=== PATIENT | female | born 1955 | race African-American/Black ===

== ENCOUNTER 2018-10-02 19:59 | Emergency (ER) | payer BC, OTHER ==
[~2018-10-02] VITALS: Ht 162.6 cm; Wt 65.8 kg
[~2018-10-02 19:59] MED LIST: ACETAMINOPHEN650 M5 PO; ADULT LOW DOSE81 MG PO; ASPIRIN325 OR; BRILINTA90 MG PO; CHANTIX1 MG PO; CIPROFLOXACIN500 M1 PO; DIAZEPAM 5 MG5 MG PO; FLEXERIL PO; IBUPROFEN 600600 M1 PO; LISINOPRIL-HCT1 EAC1 PO; LISINOPRIL10 MG; LORTAB 5 MG/5001 TA1 PO; MIRALAX255 GM PO; NICOTINE TRANSD21 M1 TD; NITROGLYCERIN0.4 MG SUBLING; NITROSTAT0.4 MG SL; NOHOMEMEDICATIONS; NORCO 5-325 TA1 EACH PO; OMEPRAZOLE40 MG PO; OXYBUTYNIN 5 MG5 M1 PO; PANTOPRAZOLE SO40 MG PO; PRILOSEC 20 MG20 MG PO; PRILOSEC40 MG PO; SIMVASTATIN40 MG PO; SKELAXIN 800 M800 M1 PO; SUCRALFATE 1 GM PO; ULTRAM 50MG TAB50 MG PO; ZOCOR 10 MG TAB10 MG PO; ZOCOR40 MG PO; [UNRECOGNIZED DRUG - REMARK]; [UNRECOGNIZED DRUG - REMARK]
[2018-10-02] MEDS ORDERED: PREDNISONE 20 M20 M1 PO (20:56)
[2018-10-02] MEDS ORDERED: PEPCID20 MG PO (20:56)
[2018-10-02 21:41] VITALS: BP 135/76
== END 2018-10-02 21:42 | disposition home or self-care (01) ==
LOC: ER 19:59
DX: T78.49XA Other allergy, initial encounter (principal); I10 Essential (primary) hypertension; K21.9 Gastro-esophageal reflux disease without esophagitis; K58.9 Irritable bowel syndrome, unspecified; E78.5 Hyperlipidemia, unspecified; M19.90 Unspecified osteoarthritis, unspecified site; I25.10 Atherosclerotic heart disease of native coronary artery without angina pectoris; E06.3 Autoimmune thyroiditis; Z90.49 Acquired absence of other specified parts of digestive tract; Z88.8 Allergy status to other drugs, medicaments and biological substances

== ENCOUNTER 2021-02-01 13:55 | Observation (INO) | payer OTHER ==
[~2021-02-01] VITALS: Ht 160 cm; Wt 78.0 kg
[~2021-02-01 13:55] MED LIST changes: +PEPCID20 MG PO; +PREDNISONE 20 M20 M1 PO
[2021-02-01 14:14] VITALS: BP 143/74
[2021-02-01 14:51] LABS: ABSOLUTE NEUTROPHILS 8.3 thou/uL (1.4-8.2); BASOPHILS 0.6 % (0.0-2.0); EOSINOPHILS 1.4 % (0.0-3.0); HEMATOCRIT 40.6 % (37.0-47.0); HEMOGLOBIN 12.8 gm/dL (12.0-15.0); LYMPHOCYTES 21.9 % (24.0-44.0); MCH 24.3 pg (26.0-34.0); MCHC 31.4 g/dL (28.0-37.0); MCV 77.3 fL (80.0-100.0); MONOCYTES 7.3 % (1.0-8.0); PLATELET COUNT 259 thou/uL (150-400); POLYS 68.8 % (36.0-66.0); RBC 5.25 mil/uL (4.20-5.00)
[2021-02-01 15:07] LABS: ANION GAP 10 mmol/L (7-16); BUN 10 mg/dL (7-18); CALCIUM 9.2 mg/dL (8.5-10.1); CHLORIDE 106 mmol/L (98-107); CO2 27 mmol/L (21-32); GLUCOSE 97 mg/dL (74-106); POTASSIUM 4.4 mmol/L (3.5-5.1); SODIUM 143 mmol/L (136-145)
[2021-02-01 15:17] LABS: SGOT 14 U/L (15-37); SGPT 20 U/L (14-59); TOTAL BILIRUBIN 0.4 mg/dL (0.2-1.0); TROPONIN-I <0.06 ng/mL (<0.06)
[2021-02-01] MEDS ORDERED: CARVEDILOL3.125 MG PO (15:18)
[2021-02-01] MEDS ORDERED: VESICARE 5 MG TA5 M1 PO (15:18)
[2021-02-01] MEDS ORDERED: LYRICA 75 MG CA75 MG PO (15:19)
[2021-02-01] MEDS ORDERED: ADULT LOW DOSE81 MG PO (15:19)
--- NOTE | 2021-02-01 15:20 | EKG ---
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
[2021-02-01 15:58] VITALS: BP 124/71
[2021-02-01 16:31] VITALS: BP 123/84
[2021-02-01 16:51] LABS: CHOLESTEROL 261 mg/dL (<200); HDL CHOLESTEROL 57 mg/dL (>40); LDL CHOLESTEROL 186 mg/dL (<100); TC:HDL 4.6 Ratio (Not establshd); TRIGLYCERIDE 92 mg/dL (<150); VLDL 18 mg/dL (<40)
[2021-02-01 16:55] LABS: SERUM ASSESSMENT Clear
[2021-02-01 17:23] VITALS: BP 130/77
--- NOTE | 2021-02-01 18:28 | NUR ---
PT ADMITED FROM ER. ADMISSION HX AND ASSESSMENT COMPLETED. VSS. SR ON TELE. NEW ORDERS NOTED. NPO AFTER MIDNIGHT FOR CARDIAC CATH IN AM. NO CONCERNS AT THIS TIME.
[2021-02-01 20:15] VITALS: BP 138/85
[2021-02-02 00:30] VITALS: BP 127/73
[2021-02-02 04:45] VITALS: BP 106/71
--- NOTE | 2021-02-02 05:41 | NUR ---
SLEPT MOST OF SHIFT. UP AD MARTINE TO BATHROOM WITH STEADY GAIT. NO FURTHER COMPLAINTS OF PAIN OR ITCHING. WORKING ON GOALS AND PLAN OF CARE FOR NOC. 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 CONTINUE TO ASSES CLOSELY.
--- NOTE | 2021-02-02 07:41 | EKG ---
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
[2021-02-02] MEDS ORDERED: LIPITOR40 MG PO (08:11)
[2021-02-02 09:02] VITALS: BP 106/71
--- NOTE | 2021-02-02 10:17 | CATHLAB ---
[facility] [place] [address] INVASIVE PROCEDURE REPORT Name: BARB BARAHONA Room #: 200-I ADM [facility] M.R.#: [id number] Admission: 02/01/21 Attend Phys: Naresh Rico MD Discharge: Date of : 57 Report #: [id number] THIS REPORT FOR: cc: Mireya Sterling MD, Sequita MD Lundgren, Craig H. MD [facility] ~ APPROVED REPORT Study performed: 02/02/2021 07:01:40 Patient Details Patient Status: In-Patient Room #: 200 The patient is a 65 year-old female Event Personnel Jorge Marlow Certified Master Safecracker, Maycol Mejia RN, Jess Weathers RTR, MOLD REPAIR TECHNICIAN Monitor, Rachel Meeks Screrinn Procedures Performed Art Access - R femoral artery* Left Heart Cath w/or w/o Coronaries [id number] [facility] 11856 Initial Mod Sed Same Phys/QHP Gr5y 711161 20077 Mod Sed Same Phys/QHP Ea 736367 Hemostasis w/ Mynx Indication Chest pain Procedure Narrative The patient was brought electively to the Cardiac Catheterization Laboratory and was prepped and draped in a sterile manner. The Right Groin^ was infiltrated with 1% Lidocaine subcutaneous anesthesia. A PINNACLE 6FR Sheath #[id number] sheath was inserted into the RFA^. Coronary angiography was performed using coronary diagnostic catheters. The right coronary system was accessed and visualized with a JR4 catheter. The left coronary system was accessed and visualized with a JL4 catheter. The left ventricle was accessed and visualized with a ANGLED PIGTAIL catheter. Left ventricular/Aortic Valve gradient assessed via catheter pullback. Left ventriculogram was performed in 30 degree projection. Closure device was deployed with a 6 Fr MYNXGRIP 6/7F #[id number]. The patient tolerated the procedure well and there were no complications associated with the procedure. There was no hematoma. Intraoperative Conscious Sedation Sedation start time: 07:43 Case end Time: [facility] [address] [place] [address] INVASIVE PROCEDURE REPORT Name: BARB BARAHONA Room #: 200-I ADM IN [facility].#: [id number] Admission: 02/01/21 Attend Phys: Cedric Bueno Discharge: Date of : 57 Report #: [id number] 08:13 Fentanyl 100 mcg Versed 2 mg Fluoro Time: 2.10 minutes Dose: DAP 4996.60 cGycm2 682 mGy Contrast Type and Amount: Omnipaque 105 ml Coronary Angiography The patient's coronary anatomy is right dominant. Diagnostic Cath Left Main Normal left main normal left main LAD Widely patent proximal 2.5 mm Xience stent. LAD appeared angiographically normal throughout the remainder of its course Diagonal 1 Large, single diagonal branch, angiographically normal Circumflex Mild ostial plaquing of the circumflex (20-30%) OM1 Large single bifurcating marginal branch, angiographically normal Right Coronary Normal dominant right coronary R PDA Normal posterior descending RPLV Normal posterior lateral branch Left Ventriculography The left ventricle is normal in size with normal contractility. The left ventricular ejection fraction is estimated to be 60-65%. Left ventricular wall motion abnormalities are not present. There is no mitral insufficiency. Hemodynamics The aortic pressure is 154/64 mmHg with a mean of 104 mmHg. The left ventricular pressure is 181/9 mmHg with a mean of mmHg. The left ventricular end diastolic pressure is 29 mmHg. Pullback from the left ventricle to the aorta revealed no gradient across the aortic valve. Conclusion 1. Normal global and regional left ventricular systolic function. EF 65% 2. Normal left main 3. Widely patent 2.5 mm Xience proximal LAD stent. The LAD was otherwise normal. 4. Mild ostial circumflex plaquing otherwise normal circumflex 5. Normal dominant right coronary. [facility] [address] [place] [address] INVASIVE PROCEDURE REPORT Name: BARB BARAHONA Room #: 200-I [facility] IN [facility]#: [id number] Admission: 02/01/21 Attend Phys: Cedric Bueno Discharge: Date of : 57 Report #: [id number] Recommendations Aggressive Medical Therapy <ELECTRONICALLY SIGNED> By: Jorge Marlow MD, [facility] 02/02/21 1016 1016 1016 Jorge Marlow MD, FACC /INF
[2021-02-02] MEDS ORDERED: AMITRIPTYLINE H10 M1 PO (10:49)
[2021-02-02] MEDS ORDERED: XANAX 0.5 MG0.5 M1 PO (10:49)
--- NOTE | 2021-02-02 11:55 | NUR ---
ASSUMED CARE OF PT AT SHIFT CHANGE. ASSESSMENTS CHARTED. MEDS GIVEN PER JAN. PT A&OX4, NO C/O PAIN. PT RETURNED FROM [facility] AT APPROX 0830, NO INTERVENTIONS. R GROIN W MYNX CLOSURE, CDI, NO BRUISING OR HEMATOMA. ECHO WAS COMPLETE AT APPROX 1115. PT LEFT AMA BETWEEN [phone]. THIS NURSE DID NOT SEE PT LEAVE. PT DID NOT EXPRESS DESIRE TO LEAVE. IV WAS ON FLOOR, TELE MONITOR WAS ON TABLE, ALL PT BELONGINS WERE GONE. THIS NURSE COMPLETED AN INCIDENT REPORT.
--- NOTE | 2021-02-02 12:42 | 2DMMODE ---
[facility] [place] [address] 2 D/M-MODE ECHOCARDIOGRAM Name: BARB BARAHONA Room #: 200-I JANEEN Mcgregor#: [id number] Admission: 02/01/21 Attend Phys: Naresh Rico MD Discharge: 02/02/21 Date of : 57 Report #: [id number] THIS REPORT FOR: cc: Mireya Sterling MD, Sequita MD Lundgren, Craig H. MD [facility] ~ APPROVED REPORT Study performed: 02/02/2021 10:26:15 EXAM: Comprehensive 2D, Doppler, and color-flow Echocardiogram Patient Location: In-Patient Room #: 200 Status: routine BSA: 1.79 HR: 50 bpm BP: 103/71 mmHg Rhythm: NSR Other Information Study Quality: Adequate Risk Factors: Cardiac Risk Factors: HTN, Smoking Indications CAD Hypertension/HDD Former smoker 2D Dimensions RVDd: 27.21 mm IVSd: 9.10 (7-11mm) LVOT Diam: 18.56 (18-24mm) LVDd: 49.96 mm PWd: 10.37 (7-11mm) Ascending Ao: 28.57 (22-36mm) LVDs: 29.43 (25-40mm) Left Atrium: 30.23 (27-40mm) Aortic Root: 31.51 mm IVC: 16.00 mm Volumes Left Atrial Volume (Systole) Single Plane 4CH: 33.21 mL Single Plane 2CH: 50.28 mL Biplane LA Volume: 44.00 mL LA ESV Index: 25.00 mL/m2 [facility] [address] [place] [address] 2 D/M-MODE ECHOCARDIOGRAM Name: BARB BARAHONA Room #: 200-I [facility] [place] ..#: [id number] Admission: 02/01/21 Attend Phys: Cedric Bueno Discharge: 02/02/21 Date of : 57 Report #: [id number] Aortic Valve AoV Peak Nasir.: 1.37 m/s AO Peak Gr.: 7.48 mmHg LVOT Max P.64 mmHg LVOT Max V: 1.08 m/s HARVEY Vmax: 2.13 cm2 Mitral Valve E/A Ratio: 1.4 MV Decel. Time: 159.39 ms MV E Max Nasir.: 0.75 m/s MV A Nasir.: 0.55 m/s MV PHT: 46.22 ms IVRT: 73.82 ms Pulmonary Valve PV Peak Nasir.: 0.96 m/s PV Peak Gr.: 3.69 mmHg Pulmonary Vein P Vein S: 0.69 m/s P Vein A: 0.30 m/s P Vein D: 0.53 m/s P Vein A Dur.: 129.2 msec P Vein S/D Ratio: 1.30 Tricuspid Valve TR Peak Nasir.: 2.76 m/s RAP Estimate: 7.00 mmHg TR Peak Gr.: 30.44 mmHg RVSP: 37.00 mmHg Left Ventricle The left ventricle is normal size. There is normal LV segmental wall motion. There is normal left ventricular wall thickness. Left ventricular systolic function is normal. The left ventricular ejection fraction is within the normal range. LVEF is 65-70%. The left ventricular diastolic function is normal. Right Ventricle The right ventricle is normal size. The right ventricular systolic function is normal. Atria The left atrium size is normal. The right atrium size is normal. Aortic Valve The aortic valve is normal in structure. No aortic regurgitation is present. There is no aortic valvular stenosis. [facility] [address] [place] [address] 2 D/M-MODE [facility]ARDIOGRAM [facility]: [facility] IN [facility].#: [id number] Admission: 02/01/21 Attend Phys: Cedric Bueno Discharge: 02/02/21 Date of : 57 Report #: [id number] Mitral Valve The mitral valve is normal in structure. Trace mitral regurgitation. No evidence of mitral valve stenosis. Tricuspid Valve The tricuspid valve is normal in structure. Mild tricuspid regurgitation. PAP 37 mmHg. Pulmonic Valve The pulmonary valve is normal in structure. There is no pulmonic valvular regurgitation. Great Vessels The aortic root is normal in size. IVC is normal in size and collapses >50% with inspiration. Pericardium There is no pericardial effusion. No pleural effusion. <Conclusion> Left ventricular systolic function is normal. There is normal LV segmental wall motion. LVEF is 65-70%. The left ventricular diastolic function is normal. The aortic valve is normal in structure. No aortic regurgitation or stenosis The mitral valve is normal in structure. Trace mitral regurgitation. Pulmonary artery pressure of 37 mmHg. There is no pericardial effusion. <ELECTRONICALLY SIGNED> By: Jorge Marlow MD, FACC 02/02/21 1241 1241 1241 Jorge Marlow MD, FACC /INF
== END 2021-02-02 11:30 | disposition left against medical advice (07) ==
LOC: ER 13:55 → 2N 15:55 → EROBS 15:55 → 2N 17:38
PROVIDERS: Emergency Medicine; Internal Medicine; Nurse Practitioner Adult Health; ADMIT Hospitalist; ATTEND Hospitalist
DX: I25.10 Atherosclerotic heart disease of native coronary artery without angina pectoris (principal); Z20.822 Contact with and (suspected) exposure to COVID-19; E78.5 Hyperlipidemia, unspecified; I10 Essential (primary) hypertension; E03.9 Hypothyroidism, unspecified; M19.90 Unspecified osteoarthritis, unspecified site; K21.9 Gastro-esophageal reflux disease without esophagitis; Z79.82 Long term (current) use of aspirin; Z87.891 Personal history of nicotine dependence
CPT/HCPCS: 10081